=== PATIENT | female | born 1945 | race Caucasian/White ===

== ENCOUNTER → 2016-07-08 | Outpatient (CLI) | payer MEDICARE, OTHER ==
[~2016-07-08] MED LIST: ASPIRIN 32325 MG/TAB PO; AVALIDE PO; BYSTOLIC10 MG PO; CHLORESTEROL MED; CIPRO 250MG TA250 MG PO; GOOD NEIGHBOR325 MG PO; HYZAAR 25 MG-101 TAB PO; NAPROSYN500 MG PO; NO HOME MEDICATIONS; NORFLEX100 MG PO; PERCOCET 325 MG1 TA2 PO; SIMVASTATIN20 MG PO; ULTRAM50 MG PO; ZOCOR 20MG20 MG PO; ZOFRAN ODT4 MG PO; ZOFRAN4 M1 PO
== END ==
LOC: MC.RAD 07:40
DX: Z12.31 Encounter for screening mammogram for malignant neoplasm of breast (principal)

== ENCOUNTER → 2017-08-17 | Outpatient (CLI) | payer MEDICARE, OTHER | LOC: MC.RAD 08:14 | DX: Z12.31 Encounter for screening mammogram for malignant neoplasm of breast (principal) ==

== ENCOUNTER → 2017-08-25 | Outpatient (CLI) | payer MEDICARE, OTHER | LOC: COL.VAS 09:49 | DX: I08.3 Combined rheumatic disorders of mitral, aortic and tricuspid valves (principal); Q21.1 Atrial septal defect ==

== ENCOUNTER → 2018-08-29 | Outpatient (CLI) | payer MEDICARE, OTHER | LOC: MC.RAD 08:53 | DX: Z12.31 Encounter for screening mammogram for malignant neoplasm of breast (principal) ==

== ENCOUNTER → 2019-11-15 | Outpatient (CLI) | payer MEDICARE, OTHER | LOC: MC.RAD 07:45 | DX: Z12.31 Encounter for screening mammogram for malignant neoplasm of breast (principal); D05.11 Intraductal carcinoma in situ of right breast ==

== ENCOUNTER → 2020-11-18 | Outpatient (CLI) | payer MEDICARE, OTHER | LOC: MC.RAD 08:44 | DX: Z12.31 Encounter for screening mammogram for malignant neoplasm of breast (principal) ==

== ENCOUNTER 2021-06-23 12:46 | Outpatient (RCR) | payer MEDICARE, OTHER | END 2021-06-25 | disposition home or self-care (01) | LOC: WSPT | DX: R26.89 Other abnormalities of gait and mobility (principal) ==

== ENCOUNTER 2021-07-23 12:00 | Outpatient (RCR) | payer MEDICARE, OTHER | END 2021-07-25 | disposition home or self-care (01) | LOC: WSPT | DX: H83.2X9 Labyrinthine dysfunction, unspecified ear (principal); G11.9 Hereditary ataxia, unspecified ==

== ENCOUNTER → 2021-12-01 | Outpatient (CLI) | payer MEDICARE, OTHER | LOC: MC.RAD 10:25 | DX: Z12.31 Encounter for screening mammogram for malignant neoplasm of breast (principal) ==